=== PATIENT | male | born 1950 | race Caucasian/White ===

== ENCOUNTER → 2018-10-09 | Outpatient (CLI) | payer OTHER, BC | LOC: CLAB 10:07 | PROVIDERS: ATTEND Internal Medicine | DX: M17.0 Bilateral primary osteoarthritis of knee (principal) | CPT/HCPCS: 73562-PO; 73565-PO ==

== ENCOUNTER → 2018-10-12 | Outpatient (CLI) | payer OTHER, BC | LOC: FIMAGING 18:28 | PROVIDERS: ATTEND Internal Medicine | DX: M23.321 Other meniscus derangements, posterior horn of medial meniscus, right knee (principal) ==

== ENCOUNTER → 2019-03-22 | Outpatient (CLI) | payer OTHER, BC | LOC: CIMAGING 08:44 ==